=== PATIENT | male | born 1990 ===

== ENCOUNTER 2017-03-16 17:33 | Emergency (ER) | payer OTHER ==
[2017-03-16 17:45] VITALS: BP 146/86; PULSE 89; RESP 18; TEMP 98.2; O2SAT 98
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
== END 2017-03-16 18:57 | disposition home or self-care (01) ==
LOC: H.ER 17:33
DX: M54.9 Dorsalgia, unspecified (principal); V43.52XA Car driver injured in collision with other type car in traffic accident, initial encounter; Y92.410 Unspecified street and highway as the place of occurrence of the external cause